=== PATIENT | male | born 1955 | race African-American/Black ===

== ENCOUNTER 2022-05-31 19:39 | Emergency (ER) | payer OTHER ==
[2022-05-31 20:13] VITALS: BP 127/89; PULSE 75; RESP 20; BMI 27.3
== END 2022-05-31 22:26 | disposition home or self-care (01) ==
LOC: JER 19:39
DX: G40.509 Epileptic seizures related to external causes, not intractable, without status epilepticus (principal)
CPT/HCPCS: 36415; 80177; 82962; 99283-25